=== PATIENT | male | born 1955 | race Caucasian/White ===

== ENCOUNTER 2017-10-14 12:56 | Observation (INO) | payer BC, OTHER ==
[~2017-10-14] VITALS: Ht 170.2 cm; Wt 96.3 kg
[2017-10-14 14:05] LABS: BASOPHIL (%) 0.6 % (0-1); BASOPHIL COUNT 0.1 K/uL (0-0.1); EOSINOPHIL (%) 1.7 % (0-5); EOSINOPHIL COUNT 0.1 K/uL (0-0.3); HEMATOCRIT 47.3 % (38.0-50.0); HEMOGLOBIN 15.5 G/DL (12.5-16.6); IMMATURE GRANULOCYTE (%) 0.7 % (0.0-0.7); LYMPHOCYTE (%) 20.5 % (15-42); LYMPHOCYTE COUNT 1.7 K/uL (1.0-2.8); MCH 28.9 PG (29.0-34.0); MCHC 32.8 G/DL (30.0-36.0); MCV 88.2 FL (86-99); MONOCYTE (%) 6.7 % (3-12); MONOCYTE COUNT 0.6 K/uL (0-0.8); NEUTROPHIL (%) 69.8 % (45-76); NEUTROPHIL COUNT 5.7 K/uL (1.8-6.4); PLATELET COUNT 240 K/uL (156-360); RBC DIS.WIDTH-CV 14.8 % (11.8-14.6); RBC DIS.WIDTH-SD 47.8 % (39-53); RED BLOOD COUNT 5.36 M/uL (4.00-5.50); WHITE BLOOD COUNT 8.2 K/uL (4.1-10.2)
[2017-10-14 14:26] LABS: TROP-I INTERPRETATION NEGATIVE; TROPONIN-I 0.01 ng/mL (0.0-0.30)
[2017-10-14 14:46] LABS: ALBUMIN 4.1 G/DL (3.2-4.8); ALKALINE PHOSPHATASE 94 IU/L (3-129); ALT (GPT) 10 IU/L (3-49); AST (GOT) 13 IU/L (2-34); CHLORIDE 104 MEQ/L (99-109); CREATININE 0.9 MG/DL (0.6-1.3); GFR ESTIMATE (CALCULATED) > 59 mL/min/ (58.99-99999); GLUCOSE 142 mg/dL (70-99); POTASSIUM 4.5 MEQ/L (3.7-5.4); SODIUM 139 MEQ/L (136-147); TOTAL BILIRUBIN 0.5 MG/DL (0.0-1.0); TOTAL PROTEIN 6.6 G/DL (6.4-8.3); UREA NITROGEN (BUN) 19 mg/dL (9-23)
[2017-10-14] MEDS ORDERED: LANTUS 3 M100 UNITS1 SC (15:14)
[2017-10-14] MEDS ORDERED: VICTOZA0.6 MG/0.1 SC (15:15)
[2017-10-14] MEDS ORDERED: PROVENTIL HFA6.7 GM IH (15:15)
[2017-10-14] MEDS ORDERED: GLUCOPHAGE1000 MG PO (15:16)
[2017-10-14] MEDS ORDERED: PRINIVIL5 MG PO (15:16)
[2017-10-14] MEDS ORDERED: JARDIANCE10 MG PO (15:16)
[2017-10-14] MEDS ORDERED: B COMPLEX #11 EACH PO (15:17)
[2017-10-14] MEDS ORDERED: SIMVASTATIN40 MG PO (15:18)
[2017-10-14] MEDS ORDERED: ALDACTONE25 MG PO (15:18)
[2017-10-14] MEDS ORDERED: NEURONTIN300 MG PO (15:19)
[2017-10-14] MEDS ORDERED: METOPROLOL SUCC25 MG PO (15:19)
[2017-10-14] MEDS ORDERED: LO-DOSE ASPIRIN81 M1 PO (15:19)
[2017-10-14 17:51] LABS: LIPASE 12 U/L (1.0-51.0); SERUM ETHYL ALCOHOL < 10 mg/dL
[2017-10-14 18:44] VITALS: BP 130/79
[2017-10-14 19:53] VITALS: BP 127/68
[2017-10-14] MEDS ORDERED: GABAPENTIN300 MG PO (20:57)
[2017-10-14 23:20] LABS: BENZODIAZEPINES, URINE SCREEN Negative (200 ng/mL)
[2017-10-14 23:59] VITALS: BP 119/72
[2017-10-15 01:11] LABS: TROP-I INTERPRETATION NEGATIVE; TROPONIN-I 0.02 ng/mL (0.0-0.30)
[2017-10-15 04:00] VITALS: BP 109/64
[2017-10-15 07:12] VITALS: BP 119/75
[2017-10-15 07:36] LABS: HEMATOCRIT 50.7 % (38.0-50.0); HEMOGLOBIN 16.2 G/DL (12.5-16.6); MCV 87.7 FL (86-99); PLATELET COUNT 257 K/uL (156-360); RBC DIS.WIDTH-CV 14.6 % (11.8-14.6); RBC DIS.WIDTH-SD 46.8 % (39-53); RED BLOOD COUNT 5.78 M/uL (4.00-5.50); WHITE BLOOD COUNT 7.6 K/uL (4.1-10.2)
[2017-10-15 08:05] LABS: CHLORIDE 103 MEQ/L (99-109); GFR ESTIMATE (CALCULATED) > 59 mL/min/ (58.99-99999); GLUCOSE 109 mg/dL (70-99); POTASSIUM 4.7 MEQ/L (3.7-5.4); SODIUM 141 MEQ/L (136-147); UREA NITROGEN (BUN) 21 mg/dL (9-23)
[2017-10-15 08:07] LABS: TROP-I INTERPRETATION NEGATIVE; TROPONIN-I < 0.01 ng/mL (0.0-0.30)
[2017-10-15] MEDS ORDERED: ADVIL,NUPRIN,M200 MG PO (09:36)
== END 2017-10-15 12:45 | disposition home or self-care (01) ==
LOC: EME 12:56 → EDOF 15:17 → 4SOUTH 15:17 → EDOF 15:17 → ENRESERV 17:24 → 4SOUTH 18:25
PROVIDERS: Emergency Medicine; Internal Medicine; Physician Assistant Medical
DX: M54.12 Radiculopathy, cervical region (principal); E11.40 Type 2 diabetes mellitus with diabetic neuropathy, unspecified; I11.0 Hypertensive heart disease with heart failure; I50.9 Heart failure, unspecified; E78.5 Hyperlipidemia, unspecified; J44.9 Chronic obstructive pulmonary disease, unspecified; Z87.442 Personal history of urinary calculi; R07.89 Other chest pain; Z82.49 Family history of ischemic heart disease and other diseases of the circulatory system; Z87.891 Personal history of nicotine dependence; R20.0 Anesthesia of skin; R51 Headache
CPT/HCPCS: 70450; 71046; 72125; 80048; 80053; 80306 90; 82948; 83690; 84484; 85025; 85027; 93005; 94799; 99281; 99284; G0378; G0480; J1650; J1815